=== PATIENT | male | born 1985 | race Caucasian/White ===

== ENCOUNTER 2021-01-27 12:29 | Emergency (ER) | payer BC, OTHER ==
[~2021-01-27] VITALS: Ht 182.9 cm; Wt 99.8 kg
[2021-01-27 13:37] VITALS: BP 141/87
[2021-01-27] MEDS ORDERED: cefTRIAXone SOD 1,000 MG VL IM ONE (14:15)
== END 2021-01-27 14:37 | disposition home or self-care (01) ==
LOC: ER 12:29
DX: S81.812D Laceration without foreign body, left lower leg, subsequent encounter (principal); L03.116 Cellulitis of left lower limb; X58.XXXD Exposure to other specified factors, subsequent encounter
CPT/HCPCS: 96372; 99283; J0696